=== PATIENT | female | born 1985 | race Caucasian/White ===

== ENCOUNTER → 2020-04-02 | Outpatient (CLI) | payer BC ==
[~2020-04-02] MED LIST: ANAPROX DS550 MG PO; CIPROFLOXACIN500 MG PO; CLARITIN10 MG PO; MOTRIN800 MG PO; ZITHROMAX Z PA250 MG PO
== END | disposition home or self-care (01) ==
LOC: COVID19 13:03
PROVIDERS: ATTEND Nurse Practitioner Family
DX: U07.1 COVID-19 (principal)